=== PATIENT | male | born 1950 | race Caucasian/White ===

== ENCOUNTER 2017-03-19 15:31 | Inpatient (IN) | payer OTHER, MEDICARE, BC ==
[~2017-03-19] VITALS: Ht 167.6 cm; Wt 80.8 kg
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
[2017-03-19 16:15] LABS: BASOPHIL # 0.1 K/uL (0.0-0.2); BASOPHIL % 0.4 %; EOSINOPHIL # 0.1 K/uL (0.0-0.5); EOSINOPHIL % 0.8 %; HEMATOCRIT 42.5 % (37.0-53.0); HEMOGLOBIN 14.8 g/dL (11.0-16.0); IMMATURE GRANULOCYTE # 0.3 K/uL (0.0-0.3); IMMATURE GRANULOCYTE % 2.1 %; LYMPHOCYTE # 2.1 K/uL (0.8-4.0); LYMPHOCYTE % 12.8 %; MCH 32.6 pg (27.0-34.0); MCHC 34.8 gm/dL (32.0-36.5); MCV 93.6 fl (83.0-98.0); MONOCYTE # 1.4 K/uL (0.0-1.0); MONOCYTE % 8.2 %; MPV 9.7 fl (9.4-12.4); NEUTROPHIL # (ANC) 12.5 K/uL (1.4-9.0); NEUTROPHIL % 75.7 %; NRBC % 0 /100WBC (0-0.00); PLATELET COUNT 337 K/uL (150-450); RBC 4.54 M/uL (3.50-5.50); RDW-CV 12.7 % (11.9-14.6)
[2017-03-19 16:17] LABS: WBC 16.5 K/uL (4.0-11.0)
[2017-03-19 16:24] LABS: INR - (THERAPEUTIC) 0.98 (0.92-1.07); PROTIME 10.3 SECONDS (9.8-11.4); PTT 22 SECONDS (25-32)
[2017-03-19 16:32] LABS: ALBUMIN 4.2 gm/dL (3.5-5.0); ALK PHOS 85 IU/L (33-138); ALT 36 IU/L (12-78); ANION GAP 12.7 (10.0-19.0); AST 48 IU/L (10-40); BLOOD UREA NITROGEN 15 mg/dL (6-24); CALCIUM 8.6 mg/dL (8.5-10.5); CHLORIDE 105 mMol/L (96-110); CO2 27 mMol/L (22-32); CREATININE 1.3 mg/dL (0.6-1.3); POTASSIUM 3.7 mMol/L (3.7-5.1); SODIUM 141 mMol/L (135-145); TOTAL BILIRUBIN 0.5 mg/dL (0.0-1.5)
[2017-03-19] MEDS ORDERED: METHOTREXATE (2.5 MG PO (21:47)
[2017-03-19] MEDS ORDERED: CELEBREX200 MG PO (21:57)
[2017-03-19] MEDS ORDERED: PLAQUENIL200 MG PO (21:58)
[2017-03-19] MEDS ORDERED: FOLIC ACID1 MG PO (21:58)
[2017-03-19] MEDS ORDERED: LEVOTHROID (S100 MCG PO (21:59)
[2017-03-19] MEDS ORDERED: PRAVACHOL40 MG PO (21:59)
[2017-03-19] MEDS ORDERED: NORVASC10 MG PO (21:59)
[2017-03-19] MEDS ORDERED: XALATAN2.5 ML OPHTH (21:59)
[2017-03-19] MEDS ORDERED: ZESTORETIC 20-1 EACH PO (21:59)
[2017-03-19] MEDS ORDERED: ORENCIA125 MG/1 M (22:00)
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
--- NOTE | 2017-03-20 05:18 | NUR ---
Significant Event: PATIENT IS ALERT AND ORIENTED X3. FOLLOWS COMMANDS. DENIES STRONG, N/T, OR BLURRED VISION. PERRLA. VSS. EQUAL STRENGTH. HR-80'S, SBP ONE-TEEN'S TO 130'S. ROOM AIR. CLEAR DIET- REGULAR ORDERED FOR AM. USES URINAL. CAN GET UP TO CHAIR. [place]-J COLLAR ON FOR COMFORT. R) AC-SL'D. Follow up: CONTINUE TO MONITOR.
[2017-03-20 06:01] LABS: BASOPHIL % 0.1 %; HEMATOCRIT 37.6 % (37.0-53.0); HEMOGLOBIN 13.1 g/dL (11.0-16.0); IMMATURE GRANULOCYTE # 0.1 K/uL (0.0-0.3); IMMATURE GRANULOCYTE % 0.4 %; LYMPHOCYTE # 1.4 K/uL (0.8-4.0); LYMPHOCYTE % 7.1 %; MCH 32.6 pg (27.0-34.0); MCHC 34.8 gm/dL (32.0-36.5); MCV 93.5 fl (83.0-98.0); MONOCYTE # 1.8 K/uL (0.0-1.0); MONOCYTE % 9.1 %; MPV 9.4 fl (9.4-12.4); NEUTROPHIL # (ANC) 16.1 K/uL (1.4-9.0); NEUTROPHIL % 83.3 %; NRBC % 0 /100WBC (0-0.00); RBC 4.02 M/uL (3.50-5.50); RDW-CV 12.7 % (11.9-14.6)
[2017-03-20 06:03] LABS: PLATELET COUNT 265 K/uL (150-450); WBC 19.4 K/uL (4.0-11.0)
[2017-03-20 06:14] LABS: ALBUMIN 3.5 gm/dL (3.5-5.0); ANION GAP 11.2 (10.0-19.0); CALCIUM 8.2 mg/dL (8.5-10.5); CREATININE 1.4 mg/dL (0.6-1.3); POTASSIUM 4.2 mMol/L (3.7-5.1)
--- NOTE | 2017-03-20 16:37 | NUR ---
Significant Event:Patient is alert and oriented times three. PERRLA. CSM intact. Denies numbness or tingling. Moves all extremities spontaneously and on command. Equal strength noted throughout. Lungs clear in the upper, clear and diminished in the bases. VSS on room air. SR on telemetry. Bowel sounds active, no bm this shift, adominal distention noted by Dr. Aguirre. Patient voids per the bathroom or the urinal. Patient ambulates with 1 assist and gaitbelt without difficulty. Multiple skin abrasions open to air. Percocet given times 1 for pain. Zofran given x2 for nausea. 175ml emesis this morning after breakfast. Patient takes medications whole without difficulty. Peripheral IV to right AC that is saline locked, flushes well, does not have blood return. Clear-->Regular diet advance as patient tolerates. Patient has tolerated saltine crackers and water this shift. Order for IV fluids if patient does not tolerate fluids. Schle[place] J collar intact, may be off to shower. Extra set of pads in his room. Follow up:
--- NOTE | 2017-03-21 02:34 | NUR ---
Significant Event:Patient alert and ox3. Up with STBA. C/o pain to back mostly with Percocet given x1 at 2019. Moves all extremeties spontaneously and on command. States no numb/tingling. Pupils reactive. Did have nausea at the beginning of the shift despite having had zofran. Called Dr. Aguirre, gave 1 time dose of pheneragan. Did start him on IVF of D51/2NS with 20KCL at 100ml/hr until Dr. Aguirre sees in am, through PIV to RT AC. Voids per urinal. Follow up:Probable home today.
[2017-03-21] MEDS ORDERED: COLACE100 MG PO (09:46)
[2017-03-21] MEDS ORDERED: PERCOCET 5-3251 EACH PO (09:55)
[2017-03-21] MEDS ORDERED: ORENCIA250 MG IV (10:11)
--- NOTE | 2017-03-21 13:00 | NUR ---
Introduced self and role of care management to patient. He lives [place] [facility] with his . He hopes to go home today. He denies discharge needs. Has been ambulating in halls independently and without assistive device. Will follow.
[2017-03-21] MEDS ORDERED: NUCYNTA50 MG PO (13:07)
--- NOTE | 2017-03-21 19:23 | NUR ---
Significant Event: a/o x 3. PRN percocet for pain management changed to nucynta due to nausea from percocet. [place] J collar removed by dr. stanton with recommendations to wear PRN comfort. takes meds whole. regular diet. up ad adelita. denies numbness/tingling. Discharged to home. left [facility] ICU at 1400 accompanied by transport staff. to be driven home per private vehicle by .
== END 2017-03-21 14:00 | disposition disaster alternative care site (69) | DRG 184 ==
LOC: GACC 15:31 → GICU 19:59
PROVIDERS: Family Medicine; ADMIT Surgery
DX: S22.20XA Unspecified fracture of sternum, initial encounter for closed fracture (principal); S22.059A Unspecified fracture of T5-T6 vertebra, initial encounter for closed fracture; S32.019A Unspecified fracture of first lumbar vertebra, initial encounter for closed fracture; S27.329A Contusion of lung, unspecified, initial encounter; S32.029A Unspecified fracture of second lumbar vertebra, initial encounter for closed fracture; K56.7 Ileus, unspecified; S22.41XA Multiple fractures of ribs, right side, initial encounter for closed fracture; M06.9 Rheumatoid arthritis, unspecified; M19.90 Unspecified osteoarthritis, unspecified site; E03.9 Hypothyroidism, unspecified; V43.52XA Car driver injured in collision with other type car in traffic accident, initial encounter; Y92.410 Unspecified street and highway as the place of occurrence of the external cause
CPT/HCPCS: G0480; J1650; J2405; J2550; J3010; J3480; Q9967